=== PATIENT | male | born 1970 | race Hispanic/Latino ===

== ENCOUNTER 2018-08-29 12:31 | Emergency (ER) | payer BC, MEDICAID ==
[2018-08-29 12:41] VITALS: TEMP 97.8
[2018-08-29 13:32] LABS: BASO # 0.1 K/uL (0.0-0.2); BASO % 0.6 % (0.0-2.0); EOS % 0.4 % (0.0-4.0); HEMOGLOBIN 16.1 g/dL (12.0-18.0); LYMPH # 2.7 K/uL (1.0-4.3); LYMPH % 34.5 % (20.0-40.0); MEAN CELL VOLUME 91.4 fl (80.0-94.0); MEAN CORPUSCULAR HEMOGLOBIN 31.5 pg (27.0-31.0); MEAN CORPUSCULAR HGB CONC 34.4 g/dL (33.0-37.0); MONO # 0.8 K/uL (0.0-0.8); MONO % 10.2 % (0.0-10.0); NEUT # 4.3 K/uL (1.8-7.0); NEUT % 54.3 % (50.0-75.0); RBC 5.12 Mil/uL (4.40-5.90); RED CELL DISTRIBUTION WIDTH 13.4 % (11.5-14.5)
[2018-08-29 13:41] LABS: PROTHROMBIN TIME 10.9 Seconds (9.8-13.1)
[2018-08-29 13:43] LABS: ALB/GLOB RATIO 1.5 (1.0-2.1); ALT/SGPT 65 U/L (21-72); AST/SGOT 47 U/L (17-59); BLOOD UREA NITROGEN 21 mg/dl (9-20); CALCIUM 9.3 mg/dL (8.4-10.2); GFR NON-AFRICAN AMERICAN > 60; LIPASE 73 U/L (23-300)
[2018-08-29 13:44] LABS: PARTIAL THROMBOPLASTIN TIME 31.1 Seconds (25.6-37.1)
--- NOTE | 2018-08-29 14:09 | ED PDOC ---
HPI: Chest Pain Time Seen by Provider: 08/29/18 12:44 Chief Complaint (Nursing): Chest Pain Chief Complaint (Provider): Chest Pain History Per: Patient History/Exam Limitations: no limitations Onset/Duration Of Symptoms: Sudden Onset Additional Complaint(s): Patient is a 48 year old male with a history of crohn's disease that is x8 years in remission, who presents to the emergency department complaining of sudden onset chest pain. He states he was at work eating a donut and when he got up to go for a walk, he had sharp mid sternal chest pain and burning sensation in the abdomen. Patient states that the pain went away on its own and came back later. When the pain came back, he decided to come to the ED, he further states that he has never had this before. He further reports that the burning in the stomach does not feel like crohn's disease. Patient has not been diagnosed with hyperte nsion and states he feels he began to feel anxious but has not had an anxiety attack in over x20 years. He denies any shortness of breath or any sweating. PMD: [facility] Past Medical History Reviewed: Historical Data, Nursing Documentation, Vital Signs Vital Signs: Last Vital Signs Temp 97.8 F 08/29/18 12:37 Pulse 70 08/29/18 13:09 Resp 17 08/29/18 13:09 BP 149/113 H 08/29/18 13:09 Pulse Ox 99 08/29/18 13:09 - Medical History PMH: Crohn's Disease, Migraine - Surgical History Surgical History: Cholecystectomy - Family History Family History: States: Unknown Family Hx - Home Medications Home Medications: Ambulatory Orders Medication Instructions Recorded Mesalamine [Pentasa] 4 tab PO HS 03/27/14 - Allergies Allergies/Adverse Reactions: Allergies Allergy/AdvReac Type Severity Reaction Status Date / Time No Known Allergies Allergy Verified 03/27/14 13:10 Review of Systems ROS Statement: Except As Marked, All Systems Reviewed And Found Negative Constitutional: Negative for: Sweats Cardiovascular: Positive for: Chest Pain Respiratory: Negative for: Shortness of Breath Gastrointestinal: Positive for: Abdominal Pain (burning sensation) Psych: Positive for: Anxiety Physical Exam - Reviewed Nursing Documentation Reviewed: Yes Vital Signs Reviewed: Yes - Physical Exam Appears: Positive for: Non-toxic, No Acute Distress Head Exam: Positive for: ATRAUMATIC, NORMOCEPHALIC Skin: Positive for: Normal Color, Warm, Dry Eye Exam: Positive for: Normal appearance, EOMI, PERRL ENT: Positive for: Normal ENT Inspection Neck: Positive for: Normal, Painless ROM, Supple Cardiovascular/Chest: Positive for: Regular Rate, Rhythm, Other (hypertensive (170/113)). Negative for: Murmur Respiratory: Positive for: Normal Breath Sounds. Negative for: Respiratory Distress Gastrointestinal/Abdominal: Positive for: Normal Exam, Soft. Negative for: Tenderness Back: Positive for: Normal Inspection. Negative for: L CVA Tenderness, R CVA Tenderness, Vertebral Tenderness Extremity: Positive for: Normal ROM. Negative for: Pedal Edema Neurological/Psych: Positive for: Alert, Oriented - Laboratory Results Result Diagrams: 08/29/18 13:00 08/29/18 13:00 Lab Results: PT 10.9 Seconds (9.8-13.1) 08/29/18 13:00 INR 1.0 08/29/18 13:00 APTT 31.1 Seconds (25.6-37.1) 08/29/18 13:00 Troponin I < 0.0120 ng/mL (0.00-0.120) 08/29/18 13:00 Total Bilirubin 0.9 mg/dl (0.2-1.3) 08/29/18 13:00 AST 47 U/L (17-59) 08/29/18 13:00 ALT 65 U/L (21-72) 08/29/18 13:00 Alkaline Phosphatase 52 U/L (38-126) 08/29/18 13:00 Total Protein 8.3 G/DL (6.3-8.2) H 08/29/18 13:00 Albumin 5.0 g/dL (3.5-5.0) 08/29/18 13:00 Globulin 3.4 gm/dL (2.2-3.9) 08/29/18 13:00 Albumin/Globulin Ratio 1.5 (1.0-2.1) 08/29/18 13:00 Lipase 73 U/L (23-300) 08/29/18 13:00 - ECG O2 Sat by Pulse Oximetry: 99 (RA) Pulse Ox Interpretation: Normal Medical Decision Making Medical Decision Making: Time: 1241 A/P: Work up for sudden onset chest pain and abdominal burning. Cardiac vs. Gastritis. Will order labs with troponin, EKG, Famotidine and reassess patient. --EKG --CMP --Lipase --Troponin I --CBC with differential --PT --PTT --Chest xray --Famotidine 40 mg IVP Time: 1418 --Patient's labs are unremarkable. --Patient is stating that GI cocktail is not helping and he continues to feel abdominal pain, requesting Dilaudid. --Will order CT abd/pelvis. Plan: --Morphine 2 mg IVP --CT abd/pelvis IV contrast only Time: 1448 Chest xray FINDINGS: LUNGS: No active pulmonary disease. PLEURA: No significant pleural effusion identified, no pneumothorax apparent. CARDIOVASCULAR: No atherosclerotic calcification present Normal. OSSEOUS STRUCTURES: No significant abnormalities. VISUALIZED UPPER ABDOMEN: Normal. OTHER FINDINGS: None. IMPRESSION: No active disease. Time: 1555 --Patient now reports of having a seafood and contrast allergy. --Patient will get CT scan without contrast. Plan: --CT scan without PO or IV contrast Scribe Attestation: Documented by Thom Dozier , acting as a scribe Alexis Holguin MD Provider Scribe Attestation: All medical record entries made by the Scribe were at my direction and personally dictated by me. I have reviewed the chart and agree that the record accurately reflects my personal performance of the history, physical exam, medical decision making, and the department course for this patient. I have also personally directed, reviewed, and agree with the discharge instructions and disposition. 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 Your lab work today shows no signs of heart injury or infections. The CAT scan did not show any abnormalities. Return to the emergency department if symptoms worsen or if new symptoms develop. Instructions: Chest Pain, Acute Abdomen (Belly Pain), Adult (DC) Forms: [facility] [facility] ([place]), [facility] ED School/Work Excuse Print Language: KINYARWANDA
--- NOTE | 2018-08-29 14:51 | RAD ---
Date of service: 08/29/2018 HISTORY: possible admission COMPARISON: No prior. FINDINGS: LUNGS: No active pulmonary disease. PLEURA: No significant pleural effusion identified, no pneumothorax apparent. CARDIOVASCULAR: No atherosclerotic calcification present Normal. OSSEOUS STRUCTURES: No significant abnormalities. VISUALIZED UPPER ABDOMEN: Normal. OTHER FINDINGS: None. IMPRESSION: No active disease.
[2018-08-29] MEDS ORDERED: Iohexol 300 100 ML IJ ONE (15:49)
[2018-08-29] MEDS ORDERED: Sodium Chloride 0.9% 0 ML IV ONE (15:50)
--- NOTE | 2018-08-29 16:54 | CT ---
Date of service: 08/29/2018 PROCEDURE: CT Abdomen and Pelvis without intravenous contrast HISTORY: Abdominal pain. Relevant medical history: Crohn's disease. COMPARISON: None. TECHNIQUE: Unenhanced. Neither IV nor oral contrast administered Radiation dose: Total exam DLP = 461.15 mGy-cm. This CT exam was performed using one or more of the following dose reduction techniques: Automated exposure control, adjustment of the mA and/or kV according to patient size, and/or use of iterative reconstruction technique. FINDINGS: LOWER THORAX: Unremarkable. LIVER: Hepatic steatosis. No focal masses. No intrahepatic bile duct dilatation or perihepatic ascites. GALLBLADDER AND BILE DUCTS: Status post cholecystectomy. No abnormality is seen in the gallbladder fossa. PANCREAS: Unremarkable. No gross lesion or ductal dilatation. SPLEEN: Unremarkable. ADRENALS: Unremarkable. No mass. KIDNEYS AND URETERS: Unremarkable. No hydronephrosis. No solid mass. Incidental finding(s): Exophytic cyst projects the lateral aspect the right kidney. VASCULATURE: Atherosclerotic calcification and mural plaque present. Findings are seen throughout the aorta which is non aneurysmal. BOWEL: Mucosal thickening distal ileum. Similar less pronounced changes in the partially collapsed descending colon. The findings are consistent with the history of Crohn's disease. This likely represents senescent rather than acute inflammatory bowel disease. APPENDIX: A normal appendix is visualized in it's entirety. PERITONEUM: Unremarkable. No free fluid. No free air. LYMPH NODES: Unremarkable. No enlarged lymph nodes. BLADDER: Unremarkable. REPRODUCTIVE: Unremarkable. BONES: No acute fracture. OTHER FINDINGS: None. IMPRESSION: No acute findings related to/ accounting for the clinical presentation. Additional benign and/or incidental findings described above.
[2018-08-29] MEDS ORDERED: Morphine 4 MG/ML VIAL IVP ONE (17:27)
[2018-08-29 17:28] VITALS: BP 149/72; PULSE 78; RESP 17
[2018-08-29] MEDS ORDERED: Morphine 4 MG/ML VIAL ONE (17:31)
--- NOTE | 2018-08-29 21:02 | CARD ---
APPROVED REPORT Date of service: 08/29/2018 EKG Measurement Heart [id number] <Conclusion> Normal sinus rhythm Minimal voltage criteria for LVH, may be normal variant Borderline ECG
[2018-09-01 00:32] VITALS: O2SAT 99
== END 2018-08-29 17:42 | disposition home or self-care (01) ==
LOC: H.ER 12:31
DX: R10.9 Unspecified abdominal pain (principal); R07.9 Chest pain, unspecified; K50.90 Crohn's disease, unspecified, without complications
CPT/HCPCS: 71045; 74176; 80053; 83690; 84484; 85025; 85610; 85730; 93005; 96374; 96375; 96376; 99284; J2270